=== PATIENT | female | born 1960 | race Caucasian/White ===

== ENCOUNTER 2023-06-21 02:29 | Emergency (ER) | payer OTHER, SELFPAY ==
[2023-06-21 02:43] VITALS: BP 159/88; PULSE 71; RESP 18; TEMP 36.5; O2SAT 96; BMI 30.4
--- NOTE | 2023-06-21 03:01 | ED_ITS ---
HPI - General Adult General Time Seen by Provider: 03:01 Date Seen: 06/21/23 Chief complaint: Headache/Migraine Stated complaint: Headache, thinks she might of have had a stroke. Time Seen by Provider: 06/21/23 02:42 Source: patient, RN notes reviewed and old records reviewed Mode of arrival: ambulatory Limitations: no limitations History of Present Illness HPI narrative: 63-year-old female who comes in today with 1 hour of headache on the top of her head. Denies injury. Did not take any medications for this. Nausea but no vomiting. Denies numbness or tingling in the arms or legs, denies weakness, denies blurry vision or double vision. Does take Xarelto as well as metoprolol lisinopril, has a pacemaker for atrial fibrillation. Related Data Home Medications Medication Instructions Recorded Confirmed xeralto 06/21/23 Allergies Allergy/AdvReac Type Severity Reaction Status Date / Time No Known Drug Allergies Allergy Verified 06/21/23 02:52 PFSH PFSH Social History Non-prescribed substance use: denies use Exam Narrative: Exam Narrative: General: Well-developed and well-nourished, no acute distress Head: Atraumatic and normocephalic Eyes: Pupils are equal reactive, extraocular motions intact, conjunctiva clear ENT: External nose and ears are normal, posterior pharynx without erythema or exudate Neck: No midline cervical tenderness, full spontaneous range of motion the neck, trachea midline, no adenopathy Heart: Regular rate and rhythm no murmurs or thrills Lungs: Clear to auscultation bilaterally without wheezes or crackles Abdomen: Soft, nontender, nondistended with active bowel sounds Musculoskeletal: No tenderness, deformity, or edema Neurologic: Awake, alert, and oriented x3, no gross focal neurologic deficits, cranial nerves intact as tested Psych: Mood and affect are appropriate Skin: No rashes Const: Vital Signs, click to edit/add: Vital Signs - 24 hr 06/21/23 02:43 Temperature 97.7 F Pulse Rate [Pulse Oximeter] 71 Respiratory Rate 18 Blood Pressure [Le ft Upper Arm] 159/88 H Pulse Oximetry 96 Oxygen Delivery Me thod Room Air Course Course ED Course: Patient seen and examined, prior records reviewed. Patient presents today with headache on the top of her head. She does smoke cigarettes and also drinks alcohol. No trauma. No neurologic symptoms, no indication for stroke code. Labs and CT scan are ordered along with fluids, Toradol, Zofran. Reevaluation(s) Time of Reevaluation #1: 03:40 Reevaluation #1: IV placed but patient wanted it removed due to discomfort although was flushing and drawing well. Refuses further attempts at IV or blood draw. Toradol IM ordered and oral Zofran. Time of Reevaluation #2: 03:53 Reevaluation #2: Patient is declining medications. CT scan of the head independently interpreted by me is negative for acute findings. Time of Reevaluation #3: 04:00 Reevaluation #3: I reviewed patient's prior outside records. She was seen at [facility] on June 11 for headache and at that time refused IV and medications, the headache is described as similar to a patient is having today. Also reviewed prior emergency department visit to [facility] on June 12 when patient was seen for palpitations and left AMA. Patient's behavior refusing care today is in keeping with her prior patterns. No acute emergent condition found based on CT imaging and exam today, and patient refuses blood draws are medications and will be discharged. Review of chart also shows patient has a history of medication noncompliance frequently missing doses of Xarelto. Additional Reevaluation(s): 4:20 a.m. patient rechecked, discussed results of head CT. She is now agreeable to having Toradol but declined Zofran. Medications will be given and discharge. 4:29 a.m. patient again refused Toradol when nurse went to give it. As patient is refusing cares, no acute emergent condition identified, no further emergency department evaluation or treatment can be initiated, she will be discharged. Vital Signs Vital signs: Initial Vital Signs Temperature 97.7 F 06/21/23 02:43 Temperature Source Temporal Artery Scan 06/21/23 02:43 Pulse Rate 71 06/21/23 02:43 Respiratory Rate 18 06/21/23 02:43 Blood Pressure 159/88 H 06/21/23 02:43 Blood Pressure Mean 111 H 06/21/23 02:43 Blood Pressure Position Sitting 06/21/23 02:43 Pulse Oximetry 96 06/21/23 02:43 Oxygen Delivery Method Room Air 06/21/23 02:43 Vital Signs Temperature 97.7 F 06/21/23 02:43 Pulse Rate 71 06/21/23 02:43 Respiratory Rate 18 06/21/23 02:43 Blood Pressure 159/88 H 06/21/23 02:43 Pulse Oximetry 96 06/21/23 02:43 Oxygen Delivery Method Room Air 06/21/23 02:43 Temperature 97.7 F 06/21/23 02:43 Pulse Rate 71 06/21/23 02:43 Respiratory Rate 18 06/21/23 02:43 Blood Pressure 159/88 H 06/21/23 02:43 Pulse Oximetry 96 06/21/23 02:43 Oxygen Delivery Method Room Air 06/21/23 02:43 Discharge Plan Discharge Clinical Impression: Anticoagulant long-term use, Headache Patient Disposition: Home, Self-Care Condition: Stable Instructions: Acute Headache (DC) Additional Instructions: Take Tylenol and ibuprofen as needed for headache Avoid alcohol and caffeine use Follow-up with your primary care doctor Return to the emergency department if you have severe headache, numbness or tingling the arms legs, weakness, double vision, or other concerning symptoms Activity Level: No Restrictions Discharge Diet: Heart Healthy (2 gm sodium, low fat) Prescriptions: No Action xeralto Follow Up/Referrals: Provider,Not a Local [Primary Care Provider] - Stand Alone Forms: MyHealth Info Instructions
--- NOTE | 2023-06-21 03:03 | CRLHL7_ITS ---
For Patients: As a result of the Century Cures Act, medical imaging exams and procedure reports are released immediately into your electronic medical record. You may view this report before your referring provider. If you have questions, please contact your health care provider. INDICATION: Headache. TECHNIQUE: CT head without contrast. COMPARISON: None. FINDINGS: CSF spaces: Within normal limits for age. Brain parenchyma and extra-axial spaces: The garsia-white differentiation is normal. No sign of mass, hemorrhage, or midline shift. No extra-axial fluid collection. Skull base and calvarium: The visualized paranasal sinuses and mastoid air cells demonstrate no acute or significant findings. The visualized orbits are grossly unremarkable. No skull fractures. IMPRESSION: Unremarkable noncontrast head CT. Please note that all CT scans at this facility use dose modulation, iterative reconstruction, and/or weight-based dosing when appropriate to reduce radiation dose to as low as reasonably achievable. Dictated by Mal Stevens MD @ 06/21/2023 4:12:05 AM (Electronically Signed)
--- NOTE | 2023-06-21 03:37 | PC.NURSE ---
IV placed by house sup RN, patient stated the IV hurt and demanded it be removed. IV removed. refused futher attempts. refused lab draw, states I dont want labs I just want the CT MD notified of refusals.
--- NOTE | 2023-06-21 04:54 | PC.NURSE ---
patient returned to registration desk to ask staff for a band aide, small dry crack noted on hand, area not bleeding. given band aide
== END 2023-06-21 04:34 | disposition home or self-care (01) ==
PROVIDERS: Emergency Provider Family Medicine
DX: R51.9 Headache, unspecified (principal); Z79.01 Long term (current) use of anticoagulants
CPT/HCPCS: 70450; 80048; 82077; 83735; 99284